=== PATIENT | male | born 1995 | race Caucasian/White ===

== ENCOUNTER 2020-08-15 18:22 | Emergency (ER) | payer OTHER ==
[2020-08-15 18:50] VITALS: BP 131/88; PULSE 107; RESP 20; TEMP 98.3
[2020-08-15] MEDS ORDERED: ACET/COD 300 MG/30 MG STARTER PACK 6 TAB BTL PO STA (20:23)
[2020-08-15] MEDS ORDERED: CEPHALEXIN 500MG STARTER PACK 4 CAP BTL PO STA (20:23)
[2020-08-15] MEDS ORDERED: IBUPROFEN 600 MG STARTER PACK 4 TAB BTL PO STA (20:23)
--- NOTE | 2020-08-15 20:23 | ED ---
General Adult HPI - General Chief complaint: Skin/Abscess/Foreign Body Stated complaint: Cellulitis Time Seen by Provider: 08/15/20 19:52 Source: patient Mode of arrival: ambulatory - History of Present Illness Initial comments: 24-year-old male patient with past medical history significant for lymphedema on the left side presents to the emergency department today for evaluation of erythema over the left lateral posterior thigh. Patient states he noticed redness beginning approximately 5 hours ago. States the redness has spread and he has had some tenderness over the area since. Denies any fevers but states he has had mild chills. Patient denies any other medical conditions. States he is working with the physician to determine the cause of the lymphedema. States he has had cellulitis several times since being diagnosed and usually is treated successfully with Keflex. Patient denies any recent rash, cough, shortness of breath, chest pain, abdominal pain, nausea, vomiting, diarrhea, constipation, back pain, numbness, tingling, dizziness, weakness, hematuria, dysuria, urinary urgency, urinary frequency, headache, visual changes, or any other complaints. - Related Data Previous Rx's Medication Instructions Recorded Cephalexin [Keflex] 500 mg PO Q6HR #40 cap 08/15/20 Ibuprofen [Motrin] 600 mg PO Q6HR PRN #20 tab 08/15/20 Allergies Allergy/AdvReac Type Severity Reaction Status Date / Time No Known Allergies Allergy Verified 08/15/20 18:50 Review of Systems ROS Statement: Those systems with pertinent positive or pertinent negative responses have been documented in the HPI. ROS Other: All systems not noted in ROS Statement are negative. Past Medical History Additional Past Medical History / Comment(s): lymphedema, History of Any Multi-Drug Resistant Organisms: None Reported Past Surgical History: No Surgical Hx Reported Past Psychological History: No Psychological Hx Reported Smoking Status: Former smoker Past Alcohol Use History: None Reported Past Drug Use History: None Reported General Exam General appearance: alert, in no apparent distress, other (This is a well- developed, well-nourished adult male patient in no acute distress. Vital signs upon presentation are temperature 98.3F, pulse 107, respirations 20, blood pressure 131/88, pulse ox 97% on room air.) Eye exam: Present: normal appearance, PERRL, EOMI. Absent: scleral icterus, conjunctival injection, periorbital swelling ENT exam: Present: normal exam, normal oropharynx, mucous membranes moist Respiratory exam: Present: normal lung sounds bilaterally. Absent: respiratory distress, wheezes, rales, rhonchi, stridor Cardiovascular Exam: Present: regular rate, normal rhythm, normal heart sounds. Absent: systolic murmur, diastolic murmur, rubs, gallop, clicks GI/Abdominal exam: Present: soft, normal bowel sounds. Absent: distended, tenderness, guarding, rebound, rigid Extremities exam: Present: full ROM, normal capillary refill, other (There is generalized swelling of the left leg, there is erythema noted over the left posterior and lateral thigh. Is hot to touch. Tender over the area. Skin is otherwise pink, warm, dry. Cap refills less than 3 seconds. Pedal and posttibial pulses are 2+ and equal bilaterally.). Absent: normal inspection, tenderness, pedal edema, joint swelling, calf tenderness Neurological exam: Present: alert, oriented X3, CN II-XII intact Psychiatric exam: Present: normal affect, normal mood Skin exam: Present: warm, dry, intact, normal color. Absent: rash Course Vital Signs 08/15/20 18:44 Temperature 98.3 F Pulse Rate 107 H Respiratory 20 Rate Blood Pressure 131/88 O2 Sat by Pulse 97 Oximetry Medical Decision Making - Medical Decision Making 24-year-old male patient with past medical history significant for lymphedema and frequent cellulitis presents to the emergency department today for evaluat ion of redness over the left posterior and lateral thigh. Physical examination did reveal erythema extending from the buttock down to the mid thigh and laterally over the left thigh. It is hot to touch and tender. He is afebrile normal vital signs. We will treat with Keflex as he has been successfully treated for this with Keflex in the past. He is urged to return should his pain worsen or if he develops any new symptoms. Return parameters were discussed in detail. He is instructed to follow-up for recheck with primary care in 1-2 days. One was recommended to him in the area. He verbalizes understanding and agrees with this plan. Disposition Clinical Impression: Cellulitis of buttock, left Disposition: HOME SELF-CARE Condition: Good Instructions (If sedation given, give patient instructions): Cellulitis (ED) Additional Instructions: Take full course of antibiotic as directed. May take Tylenol or Motrin for discomfort. Establish with primary care for recheck and further follow-up. Return to the emergency room with any new, worsening, or concerning symptoms. Prescriptions: Cephalexin [Keflex] 500 mg PO Q6HR #40 cap Ibuprofen [Motrin] 600 mg PO Q6HR PRN #20 tab PRN Reason: Pain Is patient prescribed a controlled substance at d/c from ED?: No Referrals: Nonstaff,Physician [Primary Care Provider] - 1-2 days Noni Liang MD [REFERRING] - 1-2 days Time of Disposition: 20:26
== END 2020-08-15 20:37 | disposition home or self-care (01) ==
LOC: EC 18:22
DX: L03.317 Cellulitis of buttock (principal); Z87.891 Personal history of nicotine dependence
CPT/HCPCS: 99283

== ENCOUNTER 2020-10-28 14:33 | Emergency (ER) | payer OTHER ==
[2020-10-28 14:37] VITALS: RESP 18; TEMP 97.9
--- NOTE | 2020-10-28 14:49 | ED ---
Skin/Abscess/FB HPI - General Chief complaint: Skin/Abscess/Foreign Body Stated complaint: Cellulitis Time Seen by Provider: 10/28/20 14:49 Source: patient Mode of arrival: ambulatory Limitations: no limitations - History of Present Illness Initial comments: 24-year-old male with history of cellulitis and lymphedema presenting to the emergency department with chief complaint of cellulitis. Patient states he developed cellulitis about 1.5 days ago prior to going to bed. Patient states he noticed it on the right flank region. Patient states in the past 24 hours the erythema and burning sensation has spread around the back and down to his right upper thigh. He does report having chills but denies any fevers. States he had a similar case several months ago and was seen in the emergency department and discharged with Keflex. Patient states Keflex works well for him. He is not diabetic nor immunosuppressed. He denies taking medication to a lleviate the symptoms. - Related Data Previous Rx's Medication Instructions Recorded Cephalexin [Keflex] 500 mg PO Q6HR #40 cap 08/15/20 Ibuprofen [Motrin] 600 mg PO Q6HR PRN #20 tab 08/15/20 Acetaminophen Tab [Tylenol Tab] 500 mg PO Q6H PRN #30 tablet 10/28/20 Cephalexin [Keflex] 500 mg PO Q6HR #40 cap 10/28/20 Ibuprofen [Motrin] 600 mg PO Q8HR PRN #30 tab 10/28/20 Allergies Allergy/AdvReac Type Severity Reaction Status Date / Time No Known Allergies Allergy Verified 10/28/20 14:37 Review of Systems ROS Statement: Those systems with pertinent positive or pertinent negative responses have been documented in the HPI. ROS Other: All systems not noted in ROS Statement are negative. Past Medical History Past Medical History: No Reported History Additional Past Medical History / Comment(s): lymphedema, History of Any Multi-Drug Resistant Organisms: None Reported Past Surgical History: No Surgical Hx Reported Past Psychological History: Anxiety Smoking Status: Former smoker Past Alcohol Use History: None Reported Past Drug Use History: None Reported General Exam Limitations: no limitations General appearance: alert, in no apparent distress, obese Head exam: Present: atraumatic, normocephalic, normal inspection Eye exam: Present: normal appearance, PERRL, EOMI Pupils: Present: normal accommodation ENT exam: Present: normal exam, normal oropharynx, mucous membranes moist, TM's normal bilaterally, normal external ear exam Neck exam: Present: normal inspection, full ROM. Absent: tenderness Respiratory exam: Present: normal lung sounds bilaterally. Absent: respiratory distress, wheezes, rales Cardiovascular Exam: Present: regular rate, normal rhythm, normal heart sounds GI/Abdominal exam: Present: soft. Absent: distended, tenderness, guarding, rebound Extremities exam: Present: normal inspection, full ROM, normal capillary refill. Absent: tenderness, pedal edema, joint swelling Back exam: Present: normal inspection, full ROM. Absent: tenderness, CVA tenderness (R), CVA tenderness (L) Neurological exam: Present: alert, oriented X3, normal gait Psychiatric exam: Present: normal mood, flat affect Skin exam: Present: warm, dry, intact, normal color, rash, erythema (Cellulitis with demarcated borders on the lower back, right flank region and right upper thigh.) Course Vital Signs 10/28/20 14:34 Temperature 97.9 F Pulse Rate 103 H Respiratory 18 Rate Blood Pressure 100/67 O2 Sat by Pulse 95 Oximetry Medical Decision Making - Medical Decision Making 24-year-old male with medical history of lymphedema and cellulitis presenting to the emergency department with a chief complaint of cellulitis. On physical examination, he has cellulitis with clear demarcated borders on the right flank and lower back region. There also appears to be some in the right upper thigh region as well. This is blanching and tender to touch. Also feels warm. Patient started on Keflex and emergency department. Will be discharged with 10 day course of Keflex. Patient also requested Tylenol Motrin prescription for symptomatically relief. Vitals are within normal limits. Patient advised to return to emergency department if symptoms worsen. Case discussed with physician. Disposition Clinical Impression: Cellulitis of back, Cellulitis of right thigh Disposition: HOME SELF-CARE Condition: Stable Instructions (If sedation given, give patient instructions): Cellulitis (DC) Additional Instructions: Take prescribed medication as directed. Follow-up with the primary care physician. Return to emergency department if symptoms worsen. Prescriptions: Cephalexin [Keflex] 500 mg PO Q6HR #40 cap Ibuprofen [Motrin] 600 mg PO Q8HR PRN #30 tab PRN Reason: Pain Acetaminophen Tab [Tylenol Tab] 500 mg PO Q6H PRN #30 tablet PRN Reason: Pain Is patient prescribed a controlled substance at d/c from ED?: No Referrals: Nonstaff,Physician [Primary Care Provider] - 1-2 days Srinivasan Juarez MD [STAFF PHYSICIAN] - 1-2 days Sony Guzman MD [REFERRING] - 1-2 days Time of Disposition: 15:07
[2020-10-28] MEDS ORDERED: CEPHALEXIN 500MG STARTER PACK 4 CAP BTL PO STA (15:01)
[2020-10-28 15:22] VITALS: BP 124/97; PULSE 100
== END 2020-10-28 15:21 | disposition home or self-care (01) ==
LOC: EC 14:33
DX: L03.115 Cellulitis of right lower limb (principal); L03.312 Cellulitis of back [any part except buttock and flank]; Z87.891 Personal history of nicotine dependence
CPT/HCPCS: 99283